=== PATIENT | female | born 1960 | race Caucasian/White ===

== ENCOUNTER 2020-03-25 06:54 | Outpatient (NON) | payer OTHER, SELFPAY ==
[2020-03-25 17:56] LABS: SARS-CoV-2 RNA PCR Positive
== END 2020-03-25 06:55 ==
PROVIDERS: PCP Family Medicine; Visit Provider Physician Assistant
DX: U07.1 COVID-19 (principal)
CPT/HCPCS: 87635; C9803; U0003

== ENCOUNTER → 2021-02-14 09:29 | Outpatient (REF) | payer BC, SELFPAY | LOC: ANHLAB 09:29 | PROVIDERS: PCP Family Medicine; Visit Provider Nurse Practitioner | DX: C44.319 Basal cell carcinoma of skin of other parts of face (principal) | CPT/HCPCS: 88305; 88331 ==

== ENCOUNTER 2022-06-09 00:58 | Day surgery (SDC) | payer BC, SELFPAY ==
[2022-06-01 12:24] VITALS: BMI 26.2
--- NOTE | 2022-06-08 11:17 | PM.HPGS ---
History of Present Illness History of Present Illness Consent: Risks, benefits, and alternatives have been discussed and questions answered. Patient agrees to proceed with procedure. Chief complaint: other fecal abnormalities Narrative: Felipa Harris is a 61 year old female Who was referred for colon cancer screening. She had performed a Cologuard test 3 years ago that was negative, But her most recent 1 was positive. Review of Systems Review of Systems: All systems reviewed & are unremarkable except as noted in HPI and below PMFSH Past Medical History Medical History Chronic neck pain Colon cancer screening (~02/2019) Normal cologuard Cyst, eyelid removed Mar 2021 History of TMJ disorder 1992 HLD (hyperlipidemia) Surgical History Surgical History H/O dilation and curettage History of section Family History Family History Other Family history of coronary artery disease Family history of elevated blood lipids Social History Social History Smoking status: Never smoker Second hand tobacco smoke exposure: No Alcohol intake: never Alcohol use details: RARE Substance use: never Substance use type: does not use Living arrangements: with family Occupation/Education: occupation Gender identity (if verbalized by the patient): Female Spiritual care concerns: No Meds Home Medications and Allergies Home Medications Medication Instructions Recorded Confirmed Type melatonin 5 mg tablet 5 mg PO QHS 07/04/21 06/09/22 History nmnvydqmvsqa-Ef-hqdi-minerals 1 tablet PO DAILY 07/04/21 06/09/22 History simvastatin 40 mg tablet See Rx Instructions .Route 11/02/21 06/09/22 Rx .COMPLEX #90 tabs cyclobenzaprine 10 mg tablet See Rx Instructions .Route 04/16/22 06/09/22 Rx .COMPLEX #90 tabs montelukast 10 mg tablet 10 mg PO DAILY #90 tabs 05/01/22 06/09/22 Rx tramadol 50 mg tablet 50 mg PO Q6H PRN pain #90 tabs 05/24/22 06/09/22 Rx omega-3 fatty acids 1 cap PO DAILY 06/01/22 06/09/22 History Allergies Allergy/AdvReac Type Severity Reaction Status Date / Time codeine Allergy Unknown Other Verified 06/09/22 09:18 Exam Const: General: alert Orientation/consciousness: patient oriented x3 Resp: Auscultation: clear to auscultation bilaterally Cardio: Rhythm: regular rhythm GI: GI Palp: Yes Soft to palpation and No Tenderness to palpation present (GI) Neuro: General: patient oriented x3 Assessment and Plan Assessment and plan (1) Colon cancer screening: Code(s): Z12.11 - Encounter for screening for malignant neoplasm of colon Status: Acute Assessment and Plan: Colonoscopy with possible biopsy or polypectomy or cautery or injection of substances.
[2022-06-09 09:14] VITALS: BP 136/67; PULSE 88; RESP 20; TEMP 36.3; O2SAT 100
--- NOTE | 2022-06-09 09:39 | WPDANESEPPF ---
Anes - Initial Pre Proc Eval Procedure: Operation Date: 06/09/22 10:00 Proposed Procedures p Colonoscopy - Gibson Strong MD Date/Time: 06/09/22 09:39 Surgeon: Gibson Strong MD Pre Op Diagnosis: other fecal abnormalities Patient Data Age: 61 Gender: F Height: 1.68 m Weight: 73.4 kg Last Vital Signs Temp 36.3 C L 06/09/22 09:14 Pulse 88 06/09/22 09:14 Resp 20 06/09/22 09:14 BP 136/67 06/09/22 09:14 Pulse Ox 100 06/09/22 09:14 O2 Del Method Room Air 06/09/22 09:14 Allergies Allergy/AdvReac Type Severity Reaction Status Date / Time codeine Allergy Unknown Other Verified 06/09/22 09:18 Home Medications Medication Instructions Recorded Confirmed Type melatonin 5 mg tablet 5 mg PO QHS 07/04/21 06/09/22 History rxdeudmqqcqd-Yn-ifwb-minerals 1 tablet PO DAILY 07/04/21 06/09/22 History simvastatin 40 mg tablet See Rx Instructions .Route 11/02/21 06/09/22 Rx .COMPLEX #90 tabs cyclobenzaprine 10 mg tablet See Rx Instructions .Route 04/16/22 06/09/22 Rx .COMPLEX #90 tabs montelukast 10 mg tablet 10 mg PO DAILY #90 tabs 05/01/22 06/09/22 Rx tramadol 50 mg tablet 50 mg PO Q6H PRN pain #90 tabs 05/24/22 06/09/22 Rx omega-3 fatty acids 1 cap PO DAILY 06/01/22 06/09/22 History Patient hx anesthesia problems: none Family hx anesthesia problems: none Results Review: All pre-operative results and documents have been reviewed as part of the pre-operative evaluation. [facility] Past Medical History Medical History Chronic neck pain Colon cancer screening (~02/2019) Normal cologuard Cyst, eyelid removed Mar 2021 History of TMJ disorder 1992 HLD (hyperlipidemia) Surgical History Surgical History H/O dilation and curettage History of section Family History Family History Other Family history of coronary artery disease Family history of elevated blood lipids Social History Social History Smoking status: Never smoker Second hand tobacco smoke exposure: No Alcohol intake: never Alcohol use details: RARE Substance use: never Substance use type: does not use Living arrangements: with family Occupation/Education: occupation Gender identity (if verbalized by the patient): Female Spiritual care concerns: No Anes - Eval Final PreProcedure Day of Procedure 06/09/22 09:39 Patient weight: normal Heart: regular rate and rhythm Lungs: clear to auscultation Airway: Mallampati scale class II Neurological: alert and oriented Last oral intake: >/= 8 hours ASA classification: II Emergent: no Anesthetic plan: proceed Anesthesia type and monitoring: general GIVS and standard monitoring Results Review: All pre-operative results and documents have been reviewed as part of the pre-operative evaluation. Informed Consent: The patient's anesthetic plan and its attendant risks and benefits were discussed with the patient/family/POA. Questions were solicited and answers provided to the satisfaction of the patient/family/POA.
[2022-06-09] MEDS: LACTATED RINGERS 1,000 ML 150 ML IV CONT (09:45)
[2022-06-09 10:11] VITALS: BP 84/43; PULSE 86; RESP 20; O2SAT 100
[2022-06-09 10:21] VITALS: BP 96/64; PULSE 83; RESP 18; O2SAT 100
[2022-06-09 10:31] VITALS: BP 96/64; PULSE 81; RESP 18; O2SAT 100
== END 2022-06-09 10:40 | disposition home or self-care (01) ==
PROVIDERS: PCP Family Medicine; Visit Provider Internal Medicine Gastroenterology
PROC: 0DJD8ZZ Inspection of Lower Intestinal Tract, Via Natural or Artificial Opening Endoscopic (ICD-10-PCS; CPT 45378; principal; 2022-06-09 10:00)
DX: Z12.11 Encounter for screening for malignant neoplasm of colon (principal); E78.5 Hyperlipidemia, unspecified
CPT/HCPCS: 45378; J2704; J7120

== ENCOUNTER 2022-11-07 14:31 | Emergency (ER) | payer BC, SELFPAY ==
[2022-11-07] VITALS (24 sets, daily range): BP systolic 111–139; BP diastolic 68–80; PULSE 76–91; RESP 9–21; O2SAT 84–100
--- NOTE | 2022-11-07 14:45 | ECG_ITS ---
Measurements Intervals [place] Rate: 75 P: 38 TN: 173 QRS: 15 QRSD: 88 T: 45 QT: 399 QTc: 448 Interpretive Statements SINUS RHYTHM NORMAL ECG NO PREVIOUS ECG AVAILABLE FOR COMPARISON Electronically Signed On 11-08-2022 14:59:36 CDT by Anton Arguello M.D.
[2022-11-07 14:57] LABS: Basophils Absolute Auto 0.1 K/mm3 (0.0-0.1); Basophils Percent Auto 0.8 % (0.2-1.2); Eosinophils Absolute Auto 0.1 K/mm3 (0-0.3); Eosinophils Percent Auto 1.1 % (0-4.4); Hematocrit 44.1 % (37.0-47.0); Immature Granulocyte Absolute 0.02 K/mm3 (0.00-0.031); Immature Granulocyte Percent A 0.3 % (0-0.5); Lymphocytes Absolute Auto 2.67 K/mm3 (0.9-3.2); Lymphocytes Percent Auto 36.5 % (18.3-44.2); Mean Corpuscular HGB Conc 31.7 g/dl (32-36); Mean Corpuscular Hemoglobin 30.8 pg (26-34); Mean Corpuscular Volume 96.9 fl (80-100); Mean Platelet Volume 9.6 fl (7.4-10.4); Monocytes Absolute Auto 0.5 K/mm3 (0.1-0.6); Monocytes Percent Auto 6.4 % (2.6-8.5); Neutrophils Percent Auto 54.9 % (45.5-73.1); Platelet Count Result 226 k/mm3 (150-375); Red Blood Count 4.55 M/mm3 (4.2-5.4); Red Cell Distribution Width 12.7 % (11.5-14.5); White Blood Count 7.3 K/mm3 (4.5-10.0)
[2022-11-07 15:09] LABS: Alanine Aminotransferase 28 U/L (6-35); Albumin Level 4.3 g/dL (3.5-5.1); Alkaline Phosphatase 60 U/L (38-126); Anion Gap 8 mmol/L (8-16); Aspartate Amino Transferase 30 U/L (14-36); Bilirubin,Total 0.4 mg/dL (0.2-1.3); Blood Urea Nitrogen 18 mg/dL (7-17); Calcium 8.5 mg/dL (8.4-10.2); Carbon Dioxide 24 mmol/L (22-30); Chloride 105 mmol/L (98-107); Estimated CRCL calculation 59 ml/min; Estimated Glomerular Filt Rate > 60; Glucose 113 mg/dL (65-110); Potassium 4.1 mmol/L (3.4-5.0); Sodium 137 mmol/L (137-145)
--- NOTE | 2022-11-07 16:03 | ED.GENADULT ---
HPI - General Adult General Chief complaint: Dizziness Stated complaint: near syncope Time Seen by Provider: 11/07/22 14:53 History of Present Illness HPI narrative: 62-year-old female presented the ED for evaluation after having a near syncopal episode. Patient reports she has had episodes similar to this previously that were due to dehydration. Patient reports earlier today she was having chronic neck and back pain for which she took tramadol. Patient states that she began having some lightheaded and dizziness and felt that she needed to lay down. Patient denies any falls or injuries. Related Data Home Medications Medication Instructions Recorded Confirmed melatonin 5 mg tablet 5 mg PO QHS 07/04/21 06/09/22 uxxwlvdjhthv-Dq-eskg-minerals 1 tablet PO DAILY 07/04/21 06/09/22 omega-3 fatty acids 1 cap PO DAILY 06/01/22 06/09/22 Allergies Allergy/AdvReac Type Severity Reaction Status Date / Time codeine Allergy Unknown Other Verified 06/26/22 15:12 Review of Systems Review of Systems: All systems reviewed & are unremarkable except as noted in HPI and below PMFSH Past Medical History Medical History Chronic neck pain Colon cancer screening (~02/2019) Normal cologuard Cyst, eyelid removed Mar 2021 History of TMJ disorder 1992 HLD (hyperlipidemia) Surgical History Surgical History H/O dilation and curettage History of section Family History Family History Other Family history of coronary artery disease Family history of elevated blood lipids Social History Social History Smoking status: Never smoker Second hand tobacco smoke exposure: No Alcohol intake: never Alcohol use details: RARE Substance use: never Substance use type: does not use Living arrangements: with family Occupation/Education: occupation Gender identity (if verbalized by the patient): Female Spiritual care concerns: No Exam Narrative: APPEARANCE: Well appearing, no pain, no distress, well-nourished. HEAD: normocephalic, atraumatic. EYES: PERRLA/EOMI, conjunctivae clear. NOSE: Normal no drainage NECK: Supple. No adenopathy, no masses. RESPIRATORY: Airway patent, respirations nonlabored. Clear to auscultation bilaterally, no rales, rhonchi, wheezing. CARDIOVASCULAR: Regular rate and rhythm without murmurs rubs or gallops. ABDOMINAL: Soft, nontender, nondistended, normal bowel sounds MUSCULOSKELETAL: Moves all extremities. Strength/ROM intact, No edema, No calf tenderness. NEURO: Alert. Cranial nerves II through XII intact. Grossly intact SKIN: Warm, dry. Normal Color Course Course Emergency Course: 62-year-old female presented the ED for evaluation after having a vasovagal episode. Patient states in the ED she does feel improved. Patient was treated with IV fluids and continued to improve. Patient had normal orthostatic vital signs. Patient was afebrile with no leukocytosis and a stable hemoglobin. No significant abnormalities on the patient's CMP. Patient's EKG showed normal sinus rhythm. Patient was able to ambulate in the ED with no issues. All questions and concerns were addressed Vital Signs Vital signs: Vital Signs Pulse Rate 86 11/07/22 14:31 Respiratory Rate 14 11/07/22 14:31 Blood Pressure 128/73 11/07/22 14:31 Pulse Oximetry 99 11/07/22 14:31 Oxygen Delivery Room Air 11/07/22 14:31 Pulse Rate 88 11/07/22 18:10 Respiratory Rate 15 11/07/22 18:10 Blood Pressure 122/74 11/07/22 18:10 Pulse Oximetry 100 11/07/22 18:10 Oxygen Delivery Room Air 11/07/22 14:31 Medical Decision Making Differential Diagnosis Differential Diagnosis: Dehydration, vasovagal Vital Signs Vital Signs: Vital Signs Pulse Rat
--- NOTE | 2022-11-07 17:00 | PC.NURSE ---
1,000 Normal Saline fluid bolus started. Unable to document on MAR due to computer issues
[2022-11-07] MEDS: SODIUM CHLORIDE 0.9% IV 1,000 ML 999 ML (17:18)
== END 2022-11-07 18:21 | disposition home or self-care (01) ==
PROVIDERS: Emergency Provider Emergency Medicine; PCP Family Medicine
DX: R55 Syncope and collapse (principal); E78.5 Hyperlipidemia, unspecified
CPT/HCPCS: 36415; 80053; 85025; 93005; 96360; 99284; J7030